=== PATIENT | male | born 1975 | race Native Hawaiian/Other Pacific Islander ===

== ENCOUNTER 2020-09-22 16:48 | Emergency (ER) | payer OTHER ==
[~2020-09-22] VITALS: Ht 170.2 cm; Wt 63.5 kg
[2020-09-22 16:59] VITALS: BP 133/85; TEMP 97.1
== END 2020-09-22 18:42 | disposition home or self-care (01) ==
LOC: ED 16:48
DX: H10.89 Other conjunctivitis (principal); H00.012 Hordeolum externum right lower eyelid
CPT/HCPCS: 99283

== ENCOUNTER 2022-07-18 12:27 | Emergency (ER) | payer OTHER ==
[~2022-07-18] VITALS: Ht 170.2 cm; Wt 77.1 kg
[2022-07-18 12:33] VITALS: TEMP 98.7
[2022-07-18 14:30] VITALS: BP 136/91
== END 2022-07-18 14:31 | disposition home or self-care (01) ==
LOC: ED 12:27
DX: N50.89 Other specified disorders of the male genital organs (principal)
CPT/HCPCS: 81002; 99283

== ENCOUNTER 2023-09-27 08:43 | Outpatient (CLI) | payer BC | END 2023-09-27 19:02 | disposition home or self-care (01) | LOC: RESP 08:43 | PROVIDERS: ATTEND Nurse Practitioner Family | DX: I34.1 Nonrheumatic mitral (valve) prolapse (principal) ==